=== PATIENT | female | born 1950 | race Caucasian/White ===

== ENCOUNTER → 2017-04-30 16:23 | Outpatient (CLI) | payer MEDICARE, MEDICAID | END | disposition home or self-care (01) | LOC: D.LABREF 16:23 | DX: R31.9 Hematuria, unspecified (principal) ==

== ENCOUNTER → 2017-05-02 10:34 | Outpatient (CLI) | payer MEDICARE | END | disposition home or self-care (01) | LOC: D.CT 10:34 | DX: R31.9 Hematuria, unspecified (principal) ==